=== PATIENT | male | born 1965 | race Caucasian/White ===

== ENCOUNTER 2021-07-27 10:14 | Outpatient (CLI) | payer OTHER, SELFPAY ==
--- NOTE | ~2021-07-27 | US_ITS ---
EXAMINATION: US scrotum doppler DATE: 07/27/2021 11:46 INDICATION: Testicular mass TECHNIQUE: Testicular sonogram utilizing grayscale and Doppler COMPARISON: None. FINDINGS: The right testis measures 4.6 x 1.8 x 3.0 cm. The dominant left testis measures 3.4 x 1.7 x 2.5 cm. W ith prominent tubular ectasia of the rete testes. 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 All 3 testis demonstrate identical macias scale appearance with numerous punctate echogenic foci consistent with testicular microlithiasis. The re is normal vascular flow to each of the testes on color Doppler. The right epididymis is normal wit h normal vascular flow. The left epididymis is normal with normal vascular flow. There is no varicoce le. IMPRESSION: 1. 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 Aside from tubular ectasia of the rete testes of the dominant testis there is identical echogeni city, echotexture and extensive microlithiasis of all 3 testis. Reviewed, dictated and finalized at location A. IMPRESSION: 1. 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 Aside from tubular ectasia of the rete testes of the dominant testis there is identical echogenicity, echotexture and extensive jasen rolithiasis of all 3 testis.
== END 2021-07-27 10:15 | disposition home or self-care (01) ==
PROVIDERS: PCP Internal Medicine; Visit Provider Internal Medicine
DX: N50.89 Other specified disorders of the male genital organs (principal)
CPT/HCPCS: 76870; 93976